=== PATIENT | female | born 1980 | race Caucasian/White ===

== ENCOUNTER 2019-06-18 19:06 | Emergency (ER) | payer BC, OTHER ==
[2019-06-18 20:10] VITALS: BP 134/71
--- NOTE | 2019-06-18 20:22 | UC ---
Complaint Female HPI - HPI Summary HPI Summary: 39 yo with 2 day history of bladder pain, with increased frequency and dysuria beginning today. No fever or flank pain. No vaginal discharge but is prone to yeast vaginitis. Scheduled for lap ryan one week today. - History Of Current Complaint Chief Complaint: UCGU Stated Complaint: URINARY Time Seen by Provider: 06/18/19 20:10 Hx Obtained From: Patient Hx Last Menstrual Period: 04/26/19 Onset/Duration: Gradual Onset, Lasting Days Timing: Intermittent Severity Initially: Mild Severity Currently: Moderate Pain Intensity: 0 Character: Dull Aggravating Factor(s): Urination Alleviating Factor(s): Nothing Associated Signs And Symptoms: Negative: Vaginal Bleeding/Discharge, Vaginal Discharge, Nausea, Vomiting(# Of Episodes =), Genital Swelling, Genital Blisters - Allergies/Home Medications Allergies/Adverse Reactions: Allergies Allergy/AdvReac Type Severity Reaction Status Date / Time clindamycin Allergy Rash Verified 06/18/19 20:02 codeine Allergy Vomiting Verified 06/18/19 20:02 vancomycin Allergy Rash Verified 06/18/19 20:02 Home Medications: Home Medications Loratadine [Claritin] 1 tab PO DAILY 06/18/19 [History Confirmed 06/18/19] Norethindrone 1 tab PO DAILY 06/18/19 [History Confirmed 06/18/19] PMH/Surg Hx/FS Hx/Imm Hx Previously Healthy: Yes GI/ History: Gall Bladder Disease - pending ryan; does not have stones, but does have dysfunction on HIDA scan. 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), 2000 - Family History Known Family History: Positive: Non-Contributory - Social History Occupation: Employed Full-time Lives: With Family Alcohol Use: Rare Substance Use Type: None Smoking Status (MU): Former Smoker Type: Cigarettes Amount Used/How Often: 1 PPD Length of Time of Smoking/Using Tobacco: ON and Off for 18 Years Have You Smoked in the Last Year: Yes When Did the Patient Quit Smoking/Using Tobacco: 11/2018 Household Exposure Type: Cigarettes Review of Systems All Other Systems Reviewed And Are Negative: Yes Constitutional: Positive: Negative Skin: Positive: Negative Eyes: Positive: Negative ENT: Positive: Negative Respiratory: Negative: Cough Cardiovascular: Negative: Chest Pain Gastrointestinal: Positive: Abdominal Pain - RUQ pain pending ryan Genitourinary: Positive: Dysuria, Hematuria, Frequency, Urgency. Negative: Vaginal/Penile Itching, Vaginal/Penile Discharge Motor: Positive: Negative Neurovascular: Positive: Negative Musculoskeletal: Positive: Negative Neurological: Positive: Negative Psychological: Positive: Negative Is Patient Immunocompromised?: No Physical Exam Triage Information Reviewed: Yes Appearance: Well-Appearing, No Pain Distress Vital Signs: Initial Vital Signs Temp 98.6 F 06/18/19 20:04 Pulse 110 06/18/19 20:04 Resp 16 06/18/19 20:04 BP 134/71 06/18/19 20:04 Pulse Ox 100 06/18/19 20:04 Eye Exam: Normal ENT: Positive: Normal ENT inspection, Pharynx normal Neck: Positive: Supple, Nontender, No Lymphadenopathy Respiratory: Positive: Lungs clear, Normal breath sounds Cardiovascular: Positive: RRR, No Murmur Abdomen Description: Positive: Nontender, No Organomegaly, Soft. Negative: CVA Tenderness (R), CVA Tenderness (L) Musculoskeletal Exam: Normal Neurological Exam: Normal Psychological Exam: Normal Skin Exam: Normal Diagnostics - Laboratory Lab Results: UA with 3+ WBC and rbc's Complaint Female Dx - Course Course Of Treatment: bactrim for treatment of UTI, high fluid intake, fluconazole prn. - Differential Dx/Diagnosis Differential Diagnosis/HQI/PQRI: Urinary Tract Infection Provider Diagnosis: UTI (urinary tract infection) Discharge ED - Sign-Out/Discharge Documenting (check all that apply): Patient Departure All imaging exams completed and their final reports reviewed: No Studies - Discharge Plan Condition: Good Disposition: HOME Prescriptions: Fluconazole 150 MG (NF) [Diflucan 150 mg (NF)] 150 mg PO ONCE #1 tab Sulfamethox/Trimethoprim DS* [Bactrim DS 800/160 TAB*] 1 tab PO BID #10 tab Patient Education Materials: Urinary Tract Infection in Women (ED) Referrals: Dayne Leung [Primary Care Provider] - Additional Instructions: Begin Bactrim for treatment of urinary infection. Culture has been sent and you will be notified if a change of antibiotics is needed. You have a fluconazole prescription available should you develop a yeast infection as a result of the antibiotic. Follow up as arranged for clearance with your surgeon next week as arranged. - Billing Disposition and Condition Condition: GOOD Disposition: Home
--- NOTE | 2019-06-22 07:15 | UC ---
- Progress Note Progress Note: + E Coli sensitive to bactrim Rx on bactrim no change ljj Course/Dx - Diagnoses Provider Diagnoses: UTI (urinary tract infection) Discharge ED - Sign-Out/Discharge Documenting (check all that apply): Post-Discharge Follow Up All imaging exams completed and their final reports reviewed: No Studies - Discharge Plan Condition: Good Disposition: HOME Prescriptions: Fluconazole 150 MG (NF) [Diflucan 150 mg (NF)] 150 mg PO ONCE #1 tab Sulfamethox/Trimethoprim DS* [Bactrim DS 800/160 TAB*] 1 tab PO BID #10 tab Patient Education Materials: Urinary Tract Infection in Women (ED) Referrals: Dayne Leung [Primary Care Provider] - Additional Instructions: Begin Bactrim for treatment of urinary infection. Culture has been sent and you will be notified if a change of antibiotics is needed. You have a fluconazole prescription available should you develop a yeast infection as a result of the antibiotic. Follow up as arranged for clearance with your surgeon next week as arranged. - Billing Disposition and Condition Condition: GOOD Disposition: Home
== END 2019-06-18 20:34 | disposition home or self-care (01) ==
LOC: UCCORT 19:06
DX: N39.0 Urinary tract infection, site not specified (principal); Z88.1 Allergy status to other antibiotic agents; Z88.5 Allergy status to narcotic agent; Z87.891 Personal history of nicotine dependence
CPT/HCPCS: 81003; 87077; 87086; 87186; 99202; G0463